=== PATIENT | female | born 1955 | race Caucasian/White ===

== ENCOUNTER 2023-03-07 10:45 | Emergency (ER) | payer MEDICARE, SELFPAY ==
[2023-03-07 10:52] VITALS: BP 133/65; PULSE 76; RESP 20; TEMP 36.9; O2SAT 96
--- NOTE | 2023-03-07 11:01 | ED.URI ---
HPI - URI/Sore Throat General Chief Complaint: Upper Respiratory Infection Stated Complaint: sore throat History of Present Illness HPI Narrative: pt is a 67 y/o female, presents to with 4 day hx of sore throat, sore tongue and gingival swelling/pain, onset of symptoms 2 days prior to completion of oral abx and oral steroids for bronchitis. She has continued to have pain to the tongue and throat since that time. She denies associated fevers, dysphagia or GERD symptoms. she has not attempted any modifying factors. She was concerned she may have strep, prompting her visit. Related Data Home Medications Medication Instructions Recorded Confirmed chlorthalidone 25 mg tablet mg 03/07/23 famotidine 20 mg tablet mg 03/07/23 Allergies Allergy/AdvReac Type Severity Reaction Status Date / Time Penicillins Allergy Hives Verified 03/07/23 10:53 Review of Systems Review of Systems: no fevers ENT: Comments: refer to HPI Exam Narrative: Pleasant, conversant, speech is clear Const: General: healthy appearing Nutritional Appearance: well nourished Orientation/consciousness: patient oriented x3 Limitations: no limitations HENMT: Head: normal to inspection Ears: external ears normal and TM's normal bilaterally Face/Nose/Sinus: Normal external nose present and Normal nares present Face and sinus: normal facial exam Mouth: Yes Abnormal oral and palatal mucosa present erythematous and other (pt has white patchy eruptions over the posterior tongue. Buccal mucosa, gingiva and pharyngeal mucosa is erythematous) Other: no trismus uvula midline Tonsils do not appear grossly swollen, no exudate noted Eyes: Conjunctivae: conjunctivae normal Pupils: Equal, round and reactive pupils present EOM: EOMs intact bilaterally Direct Ophthalmoscopy: no photophobia Neck: Neck: normal visual inspection, no lymphadenopathy and no meningeal signs Resp: Effort & Inspection: normal respiratory effort Auscultation: clear to auscultation bilaterally Cardio: Rate: regular rate Rhythm: regular rhythm GI: GI Palp: Yes Soft to palpation and Yes Tenderness to palpation present (GI) Auscultation: normal bowel sounds Back/Spine/Pelvis: Back: no CVA tenderness Skin: General skin exam: normal color Neuro: General: patient oriented x3, moves all extremities, no meningeal signs and no focal motor deficits Cranial nerves: Yes Nystagmus not present Speech: normal speech Gait exam (Neuro): Normal gait present Extrem: General: normal to inspection Course Course Emergency Course: pts exam is consistent with thrush. She is advised of plan to treat with oral nystatin, PCP FU if symptoms are not improving in 3 days. Pt is agreeable with plan. Level of Care: Express Care Visit ([id number]) Vital Signs Vital signs: Vital Signs Temperature 36.9 C 03/07/23 10:52 Pulse Rate 76 03/07/23 10:52 Respiratory Rate 20 03/07/23 10:52 Blood Pressure 133/65 03/07/23 10:52 Pulse Oximetry 96 03/07/23 10:52 Oxygen Delivery Room Air 03/07/23 10:52 Temperature 36.9 C 03/07/23 10:52 Pulse Rate 76 03/07/23 10:52 Respiratory Rate 20 03/07/23 10:52 Blood Pressure 133/65 03/07/23 10:52 Pulse Oximetry 96 03/07/23 10:52 Oxygen Delivery Room Air 03/07/23 10:52 MDM - URI/Sore Throat MDM Narrative Medical decision making narrative: nystatin swish and swallow, PCP FU Differential Diagnosis Differential diagnosis: Likely pharyngitis and other (oral deisi) Discharge Plan Discharge Clinical Impression: Deisi infection, oral Patient Disposition: Home, Self-Care Condition: Stable Instructions: Antibiotic Form, Oral Candidiasis (ED) Prescriptions: New nystatin 100,000 unit/mL suspension 5 ml PO QID 14 Days Qty: 280 0RF Rx Instructions: swish and swallow No Action chlorthalidone 25 mg tablet famotidine 20 mg tablet Follow-up/Referrals: Ishan
== END 2023-03-07 11:19 | disposition home or self-care (01) ==
PROVIDERS: Emergency Provider Nurse Practitioner Family; PCP Internal Medicine
DX: B37.0 Candidal stomatitis (principal)
CPT/HCPCS: 99213; G0463

== ENCOUNTER 2025-07-21 08:35 | Emergency (ER) | payer MEDICARE, SELFPAY ==
[2025-07-21 08:48] VITALS: BP 167/87; PULSE 71; RESP 16; TEMP 36.8; O2SAT 100
--- OUTSIDE RECORDS SUMMARY | 2025-07-21 08:50 | XMS_ITS | Encounter Summary ---
Author Organization [facility] Address [address] [place] [address] Phone Care Team Providers Care Health Evaluator Name Role Phone Roman Olmstead MD Primary Care Provider [phone] Colt Avery PAC Unavailable [phone] Riki Castillo MD Unavailable Reason for Visit * Reason Comments Medication Refill Encounter Details Date Type Department Care Team (Late st Contact Info) Description 10/03/2021 Refill [facility] [address] [place] [address] Roman Olmstead MD #[address] [address] Medication Refill Social History Tobacco Use Types Packs/Day Years Used Date Smoking Tobacco: Every Day Cigarettes 1 48 Smokeless Tobacco: Never Alcohol Use Standard Drinks/Week Comments Yes 2 (1 standard drink = 0.6 oz pur e alcohol) social drinker PHQ-2 Answer Date Recorded Total Score - Questions 1-9 0 03/17 Comments No Sex and Gender Information Value Date Recorded Sex Assigned at Female 04/29/2023 2:40 PM CDT Legal Sex Female 8:52 PM CDT Gender Identity Female 04/29/2023 2:40 PM CDT Sexual Orientation Not on file documented as of this encounter Plan of Treatment Upcoming Encounters Date Type Department Care Team (Late st Contact Info) Description 07/22/2025 1:00 PM GENERATION MANAGER Lab [facility] PHYSICIAN [facility] LAB #[address] [address] [facility] [place] Lab/Ancillary 07/29/2025 1:00 PM GENERATION MANAGER Office Visit [facility] [place] [address] [place] [address] Roman Olmstead MD #[address] [address] 08/19/2025 1:00 PM GENERATION MANAGER [facility] [address] [place] [address] Riki Castillo MD #[address] [address] 08/19/2025 1:00 PM GENERATION MANAGER - 08/19/2025 1:30 PM GENERATION MANAGER [facility] [address] [place] [address] Riki Castillo MD #[address] [address] COLONOSCOPY Scheduled Procedures Name Priority Associated Diagnoses Date/Ti me COLONOSCOPY HISTORY OF ADENOMATOUS POLYP OF COLON 08/19/2025 1:00 PM GENERATION MANAGER documented as of this encounter Visit Diagnoses Diagnosis Essential hypertension with goal blood pressure less than 130/85 documented in this encounter Additional Health Concerns Assessment Noted Time PHQ-9 Depression Total Score: 0 04/05/20 20 10:21 AM CDT documented as of this encounter Care Teams Health Evaluator Relationship Specialty Start Date End Date Roman Olmstead MD #[address] [address] PCP - General Family Medicine 09/05/15 Colt Avery PAC #2 [facility] [address] [place] [address] Physician Heel Sander Physician Heel Sander 05/20/24 Riki Castillo MD #2 [facility] [address] [place] [address] Consulting Physician Colon and Rectal Surgery 06/17/25 documented as of this encounter
--- OUTSIDE RECORDS SUMMARY | 2025-07-21 08:50 | XMS_ITS | Encounter Summary ---
Author Organization [facility] Address [address] [place] [address] Phone Care Team Providers Care Director Of Accounts Receivable Name Role Phone Roman Olmstead MD Primary Care Provider [phone] Colt Avery PAC Unavailable [phone] Riki Castillo MD Unavailable Reason for Visit * Reason Comments Medication Refill Encounter Details Date Type Department Care Team (Late st Contact Info) Description 11/18/2022 Refill [facility] [place] #[address] [place] [address] Pamela Phoenix, NOVELTY PRINTING MACHINE OPERATOR, WEB PRESS OPERATOR ASSISTANT #[address] [address] Medication Refill Social History Tobacco Use Types Packs/Day Years Used Date Smoking Tobacco: Every Day Cigarettes 1 48 Smokeless Tobacco: Never Alcohol Use Standard Drinks/Week Comments Yes 2 (1 standard drink = 0.6 oz pur e alcohol) social drinker PHQ-2 Answer Date Recorded Total Score - Questions 1-9 0 05/0 01/2022 Comments No Sex and Gender Information Value Date Recorded Sex Assigned at Female 04/29/2023 2:40 PM CDT Legal Sex Female 8:52 PM CDT Gender Identity Female 04/29/2023 2:40 PM CDT Sexual Orientation Not on file documented as of this encounter Plan of Treatment Upcoming Encounters Date Type Department Care Team (Late st Contact Info) Description 07/22/2025 1:00 PM GERICARE AIDE Lab [facility] #[address] [address] Lab [place] Lab/Ancillary 07/29/2025 1:00 PM GERICARE AIDE Office Visit [facility] [place] #[address] [place] [address] Roman Olmstead MD #[address] [address] 08/19/2025 1:00 PM GERICARE AIDE [facility] [address] [place] [address] Riki Castillo MD #[address] [address] 08/19/2025 1:00 PM GERICARE AIDE - 08/19/2025 1:30 PM GERICARE AIDE [facility] [address] [place] [address] Riki Castillo MD #[address] [address] COLONOSCOPY Scheduled Procedures Name Priority Associated Diagnoses Date/Ti me COLONOSCOPY HISTORY OF ADENOMATOUS POLYP OF COLON 08/19/2025 1:00 PM GERICARE AIDE documented as of this encounter Visit Diagnoses Not on filedocumented in this encounter Additional Health Concerns Assessment Noted Time PHQ-9 Depression Total Score: 0 04/05/20 20 10:21 AM CDT documented as of this encounter Care Teams Director Of Accounts Receivable Relationship Specialty Start Date End Date Roman Olmstead MD #[address] [address] PCP - General Family Medicine 09/05/15 Colt Avery, PAC #[address] [facility] [address] [place] [address] Physician Senior Technical Architect Physician Senior Technical Architect 05/20/24 Riki Castillo MD #[address] [facility] [address] [place] [address] Consulting Physician Colon and Rectal Surgery 06/17/25 documented as of this encounter
--- OUTSIDE RECORDS SUMMARY | 2025-07-21 08:51 | XMS_ITS | Clinical Summary ---
Author Organization [facility] Address [address] [facility] [address] [place] [address] Phone Care Team Providers Care Stator Connector Name Role Phone Roman Olmstead MD Primary Care Provider [phone] [facility] Unavailable [phone] Riki Castillo MD Unavailable Allergies Active Allergy Reactions Criticality Noted Date Comments Penicillin G Hives High 08/20/2019 Penicillins Hives High 04/24/2016 Medications CRANBERRY PO Take 4,200 mg by mouth. Active Multiple Vitamins-Mineral s (CENTRUM SILVER PO) Take by mouth. Acti ve melatonin 3 MG Tablet Take 10 mg by mouth nightly. Active famotidine (PEPCID) 20 MG Tablet Take 1 Tablet by mouth 2 times daily. 180 Tablet 1 5 Active Additional Information Patient not taking.Reported on 06/17/2025 chlorthalidone (HYGROTON) 25 MG Tablet Take 1 Tablet by mouth daily. 90 Tablet 3 5 Active NAPROXEN PO Take by mouth nightly. Active omeprazole (PriLOSEC) 20 MG CAPSULE DELAYED RELEASEIndicatio ns:Dysphagia, unspecified type Take 1 Capsule by mouth daily. Take 30 minutes prior to the largest meal of the day. 90 Capsule 1 5 Active Active Problems Problem Noted Date Diagnosed Date Pure hypercholesterolemia 07/31/2022 Gastroesophageal reflux disease without esophagi tis 04/24/2016 Hypertension, essential 04/24/2016 Goiter, euthyroid 04/24/2016 Encounters Date Type Department Care Team Description 06/17/2025 2:00 PM CDT Office Visit [facility] Surgery - [place] [address] [phone] Roman Olmstead MD Kumar, Raman, MD History of adenomatous polyp of colon (Primary Dx) Discharge Disposition: Discharged to home or Selfcare 06/15/2025 Results Follow-Up [facility] [place] [address]2 [place] [phone] Oesneha, Lou N, RN RESOURCE NURSE, STRATEGIC ACCOUNT DIRECTOR POCT UA AUTOMATED W/O MICRO, VAGINITIS SCREEN, MOLECULAR 06/14/2025 2:15 PM CDT Office Visit [facility] [place] [address] [place] [phone] Vj, Lou N, RN RESOURCE NURSE, STRATEGIC ACCOUNT DIRECTOR Pain (Primary Dx); Urine frequency; Urgency incontinence; Right flank pain Discharge Disposition: Discharged to home or Selfcare 06/14/2025 Travel 06/14/2025 Telephone [facility] [address] [place] [phone] Roman Olmstead MD Advice Only 06/03/2025 Telephone [facility] General Surgery - [place] [address] [phone] Riki Castillo MD 05/20/2025 [facility] [place] [facility] [place] [phone] Roman Olmstead MD 05/20/2025 [facility]phone [facility] [place] [address] [place] [phone] Kalli Rocha APRN, STRATEGIC ACCOUNT DIRECTOR Need Order 05/10/2025 Results Follow-Up [facility] [place] [address]2 [place] [phone] Javier Crabtree APRN, DARLENE XR UPPER G.I. SERIES W ESOPHAGUS 05/07/2025 8:55 AM CDT - 05/07/2025 11:59 PM CDT [facility] [address] [place] [address] Javier Crabtree APRN, DARLENE Discharge Disposition: Discharged to home or Selfcare 05/07/2025 8:54 AM CDT [facility] [address] [place] [address] Javier Crabtree APRN, Steff Myrick MS [facility] Discharge Disposition: Discharged to home or Selfcare 05/07/2025 Plan of Care Documentation [facility] Diagnostic Radiology [address] [place] [address] 05/07/2025 Travel 05/03/2025 [facility] [address] [place] [address] Kalli Rocha APRN, DARLENE 04/30/2025 Telephone [facility] [address] [place] [address] Roman Olmstead MD 04/20/2025 3:39 PM CDT - 04/20/2025 11:59 PM CDT [facility] [address] [place] [address] Roman Olmstead MD Discharge Disposition: Discharged to home or Selfcare 04/20/2025 2:30 PM CDT [facility] [address] [place] [address] Javier Crabtree APRN, DARLENE Dysphagia, unspecified type (Primary Dx) Discharge Disposition: Discharged to home or Selfcare 04/20/2025 Travel from Last 3 Months Immunizations Immunization Administration Dates Next Due Influenza Vaccine, Quadrivalent, PF 07/31/2022,1 09/19/2020 Influenza, Quadrivalent, Adjuvanted 07/30/2023 Influenza, Trivalent, Adjuvanted, PF 07/30/2024 PUR TDAP 7+ YRS IM 04/24/2016 Pneumococcal conjugate PCV20 , polysaccharide [id number] conjugate, adjuvant, PF 01/29/2023 TDAP Vaccine 04/24/2016 Family History Medical History Relation Name Comments Cancer Brother 1 Herminio Lung Cancer Brother 1 Herminio No Known Problems Brother 2 Mason No Known Problems Daughter 1 No Known Problems Daughter 2 Diabetes Father ugene Heart Attack Maternal Grandfather Hypertension Maternal Grandmother Diabetes Mother minda Hypertension Mother minda Osteoarthritis Mother minda Thyroid Disease Mother minda addisons Mother minda Stroke Paternal Grandfather Hypertension Paternal Grandmother No Known Problems Sister 1 Mirna No Known Problems Sister 2 Agueda No Known Problems Son Relation Name Status Comments Brother 1 Herminio Alive Currently on ho spice Brother 2 Mason Alive Daughter 1 Alive Daughter 2 Alive Father ugene Progressive sup ranuclear palsy Maternal Grandfather Maternal Grandmother ruth s disease Mother minda addisons diease Paternal Grandfather Paternal Grandmother Sister 1 Mirna Alive Sister 2 Agueda Alive Son Alive Social History Tobacco Use Types Packs/Day Years Used Date Smoking Tobacco: Every Day Cigarettes 1 53.8 Started: 1970 Smokeless Tobacco: Never Tobacco Cessation:Ready to Q uit: Not Asked; Counseling Given: Not Answered Alcohol Use Standard Drinks/Week Comments Yes 2 (1 standard drink = 0.6 oz pur e alcohol) social drinker Overall Financial Resource Strain ([facility]) Answe r Date Recorded How hard is it for you to pa y for the very basics like food, housing, medical care, and heating? Not hard at all 01/28/2024 PHQ-2 Answer Date Recorded Total Score - Questions 1-9 0 01/14 Exercise Vital Sign Answer Date Recorde d On average, how many days pe r week do you engage in moderate to strenuous exercise (like a brisk walk)? 3 days 01/28/2024 On average, how many minutes do you engage in exercise at this level? 120 min 01/28/2024 Education Answer Date Recorded What is the highest level of school you have completed or the highest degree you have received? Bachelor's degree (e.g., BA, AB, BS) 01/29/2023 Sexually Active Control Partners Comments Not Currently Male Comments No Sex and Gender Information Value Date Recorded Sex Assigned at Female 04/29/2023 2:40 PM CDT Legal Sex Female 8:52 PM CDT Gender Identity Female 04/29/2023 2:40 PM CDT Sexual Orientation Not on file Last Filed Vital Signs Vital Sign Reading Time Taken Comments Blood Pressure 114/58 06/17/2025 1:56 PM CDT Pulse 86 06/17/2025 1:56 PM CDT Temperature 36.4 C (97.6 F) 06/14/2025 2:18 PM CDT Respiratory Rate 16 06/14/2025 2:18 PM CDT Oxygen Saturation 96% 06/17/2025 1:56 PM CDT Inhaled Oxygen Concentration - - Weight 61.2 kg (135 lb) 06/17/2025 1:56 PM CDT Height 152.4 cm (5') 06/17/2025 1:56 PM CDT Body Mass Index 26.37 06/17/2025 1:56 PM CDT Plan of Treatment Upcoming Encounters Date Type Department Care Team (Late st Contact Info) Description 07/22/2025 1:00 PM AUTOMATIC MOLD SANDER Lab [facility] #[address] [phone] [facility] Lab/Ancillary 07/29/2025 1:00 PM AUTOMATIC MOLD SANDER [facility] [place] [address]2 [place] [address] Roman Olmstead MD #[address] [address] 08/19/2025 1:00 PM AUTOMATIC MOLD SANDER Hospital [facility] Lab Periop [address] [place] [address] Riki Castillo MD #[address] [address] 08/19/2025 1:00 PM AUTOMATIC MOLD SANDER - 08/19/2025 1:30 PM AUTOMATIC MOLD SANDER Surgery [facility] Gi Lab Periop [address] [place] [address] Riki Castillo MD [address] [address] COLONOSCOPY Scheduled Procedures Name Priority Associated Diagnoses Date/Ti me COLONOSCOPY HISTORY OF ADENOMATOUS POLYP OF COLON 08/19/2025 1:00 PM AUTOMATIC MOLD SANDER Health Maintenance Due Date Last Done Comments Hepatitis C Virus (HCV) Screening 1955 Cologuard 2001 Immunochemical Fecal Occult Blood 2001 Zoster Immunization (1 of 2) 2006 Medicare Initial AWV [id number] 04/16/2022 DEXA Bone Density 01/31/2024 01/30/2022 Influenza Immunization (#1) 05/17/202507/17, 07/30/2023, 07/31/2022, Additional history exists SARS-COV-2 Immunization ( season) 2025 01/23/2021 Mammogram 03/11/2026 03/11/2025, 01/14, 03/18/2019, Additional history exists Lung Cancer Screening 04/20/2026 04/20/2025 , 04/29/2023, 02/27/2022 Td Immunization Every 10 Years (Adults With 1 Tdap) 04/24/2026 04/24/2016, 04/24/2016 Colonoscopy 08/20/2029 08/20/2019, 08/20/2019 Colorectal Cancer Screening 08/20/2029 Respiratory Syncytial Virus (RSV) Immunization (Adult) (1 - 1-dose 75+ series) 2031 DTaP/Tdap/Td Immunization Discontinued 04/24/2016, 05/2016 Pneumococcal Immunization (50+ years) Completed 01/29/2023 Pneumococcal Immunization Combined Discontinued 01/29/2023 Hepatitis B Immunization Aged Out No longer eligible based on patient's age to complete this topic Human Papillomavirus (HPV) Immunization Aged Out No longer eligible based on patient's age to complete this topic Meningococcal Immunization (ACWY) Aged Out No longer eligible based on patient's age to complete this topic Rotavirus Immunization Aged Out No lo nger eligible based on patient's age to complete this topic Procedures Procedure Name Priority Date/Time Associated Diagnosis Comments VAGINITIS SCREEN, MOLECULAR Routine 06/14/2025 2:43 PM CDT Pain POCT UA AUTOMATED W/O MICRO Routine 06/14/2025 2:20 PM CDT Pain XR UPPER G.I. SERIES W ESOPHAGUS Less Than 1 week 05/07/2025 9:54 AM CDT Dysphagia, unspecified type XR SWALLOWING FUNCTION STUDY WITH VIDEO/CINE Routine 05/07/2025 9:50 AM CDT Dysphagia, unspecified type CT CHEST SCREENING WO Routine 04/20/2025 3:48 PM CDT Personal history of nicotine dependence AMI SCREENING BILATERAL DIGITAL W CAD W ARGENIS Routine 03/11/2025 2:01 PM CDT Encounter for screening mammogram for breast cancer AMI BONE DENSITOMETRY AXIAL SKELETON Routine 01/30/2022 2:38 PM CDT Menopause HM COLONOSCOPY Routine 08/20/2019 from Last 3 Months or Most Recently Relevant to Health Maintenance Results * VAGINITIS SCREEN, MOLECULAR (06/14/2025 2:43 PM CDT) TRICHOMONAS NOT DETECTED NOT DETECTED 06/15/2025 12:37 AM CDT [facility] NOT DETECTED NOT DETECTED 06/15/2025 12:37 AM CDT [facility] DEISI NOT DETECTED NOT DETECTED 06/15/2025 12:37 AM CDT [facility] Comment: Deisi group Not detected with the following possible Deisi species: Deisi albicans and/or Deisi tropicalis and/or Deisi parapsilosis and/or Deisi dubliniensis DEISI GLABRATA NOT DETECTED NOT DETECTED 06/15/2025 12:37 AM CDT [facility] DEISI KRUSEI NOT DETECTED NOT DETECTED 06/15/2025 12:37 AM CDT [facility] Other VAGINAL STRUCTURE / Unknown Non-Phlebotomy Collection / Unknown 06/14/2025 2:43 PM CDT 06/14/2025 2:43 PM CDT December N Vj PERRY CNP MICROBIOLOGY - GENERAL OR DERABLES Final Result [facility] [address] [place] [address], * (ABNORMAL) POCT UA AUTOMATED W/O MICRO (06/14/2025 2:20 PM CDT) POC UA SPECIFIC GRAVITY 1.005 URINE PH 7.0 5.0 - 9.0 POC URINE LEUKOCYTES Negative Negative Lorenza/uL POC URINE NITRITE Negative Negative POC URINE PROTEIN Negative Negative mg/dL POC URINE GLUCOSE Norm Negative, Norm mg/dL POC URINE KETONE Negative Negative mg/dL POC URINE UROBILINOGEN Norm Norm, 0.2 E.U./dL (mg/dL), 1 E.U./dL (mg/dL) POC URINE BILIRUBIN Negative Negative mg/dL POC URINE BLOOD INSTRUMENT 50 Checo/uL(A) Negative Checo/uL POC URINE COLOR Light Yellow POC URINE CLARITY Clear Urine 06/14/2025 2:20 PM CDT December N Vj PERRY CNP POINT OF CARE TESTING (KRISHNA PEREZ) Final Result * XR UPPER G.I. SERIES W ESOPHAGUS (05/07/2025 9:54 AM CDT) Anatomical Region Laterality Modality GI, Abdomen N/A Digital Radiogra phy 05/07/2025 1:03 PM CDT Impressions 05/07/2025 1:06 PM CDT IMPRESSION: Normal upper GI series. Narrative 05/07/2025 1:06 PM CDT EXAM DESCRIPTION: XR UPPER G.I. SERIES W ESOPHAGUS REASON FOR STUDY: pt c/o difficulty swallowing. GERD x 2 mo, omeprizole x 2 weeks COMPARISON: None RADIATION DOSE: Dose: N/A TECHNIQUE: Patient ingested thin and thick consistencies of barium contrast. FINDINGS: 12.5 mm Barium Tablet: No significant delay in passage. ESOPHAGEAL MOTILITY: Normal peristalsis. No evidence of achalasia or esophageal spasm. ESOPHAGEAL MUCOSA: Normal mucosa ulceration. No evidence of stricture. No diverticulum. GASTRO-ESOPHAGEAL JUNCTION: No significant hiatal hernia or evidence of reflux. STOMACH: Normal without masses or ulcerations. GASTRIC OUTLET: No delay in emptying. DUODENUM AND PROXIMAL JEJUNUM: Normal peristalsis. No strictures or filling defects. No evidence of malrotation. THIS IS AN ELECTRONICALLY VERIFIED FINAL REPORT 05/07/2025 1:03 PM - Electronically signed by Schuyler Eugene M.D. KR: SYED Report ID: [id number] Reading Location: [place] [address] Procedure Note Schuyler Eugene MD - 05/07/2025 EXAM DESCRIPTION: XR UPPER G.I. SERIES W ESOPHAGUS REASON FOR STUDY: pt c/o difficulty swallowing. GERD x 2 mo, omeprizole x 2 weeks COMPARISON: None RADIATION DOSE: Dose: N/A TECHNIQUE: Patient ingested thin and thick consistencies of barium contrast. FINDINGS: 12.5 mm Barium Tablet: No significant delay in passage. ESOPHAGEAL MOTILITY: Normal peristalsis. No evidence of achalasia or esophageal spasm. ESOPHAGEAL MUCOSA: Normal mucosa ulceration. No evidence of stricture. No diverticulum. GASTRO-ESOPHAGEAL JUNCTION: No significant hiatal hernia or evidence of reflux. STOMACH: Normal without masses or ulcerations. GASTRIC OUTLET: No delay in emptying. DUODENUM AND PROXIMAL JEJUNUM: Normal peristalsis. No strictures or filling defects. No evidence of malrotation. THIS IS AN ELECTRONICALLY VERIFIED FINAL REPORT 05/07/2025 1:03 PM - Electronically signed by Schuyler Eugene M.D. KR: SYED Report ID: [id number] Reading Location: [id number] IMPRESSION: Normal upper GI series. Javier Crabtree APRN, DARLENE IMG FLUOROSCOPY ORDERABLES Final Result * XR SWALLOWING FUNCTION STUDY WITH VIDEO/CINE (05/07/2025 9:50 AM CDT) Anatomical Region Laterality Modality GI, Abdomen N/A Digital Radiogra phy 05/07/2025 1:01 PM CDT Impressions 05/07/2025 1:03 PM CDT IMPRESSION: No evidence of penetration or aspiration. Please correlate with Speech Pathology report. Narrative 05/07/2025 1:03 PM CDT EXAM DESCRIPTION: XR SWALLOWING FUNCTION STUDY WITH VIDEO/CINE REASON FOR STUDY: pt c/o difficulty swallowing. GERD x 2 mo, omeprizole x 2 weeks RADIATION DOSE: Dose: N/A TECHNIQUE: Fluoroscopic assistance provided to Speech Pathology Department who performed the exam. The patient was brought into the fluoro room and placed upright on a modified barium swallow chair. The patient was then given multiple consistencies mixed with barium to swallow under live fluoroscopic video guidance. COMPARISON: None FINDINGS: No evidence of penetration or aspiration. THIS IS AN ELECTRONICALLY VERIFIED FINAL REPORT 05/07/2025 1:01 PM - Electronically signed by Schuyler Eugene M.D. KR: SYED Report ID: [id number] Reading Location: [id number] Procedure Note Schuyler Eugene MD - 05/07/2025 EXAM DESCRIPTION: XR SWALLOWING FUNCTION STUDY WITH VIDEO/CINE REASON FOR STUDY: pt c/o difficulty swallowing. GERD x 2 mo, omeprizole x 2 weeks RADIATION DOSE: Dose: N/A TECHNIQUE: Fluoroscopic assistance provided to Speech Pathology Department who performed the exam. The patient was brought into the fluoro room and placed upright on a modified barium swallow chair. The patient was then given multiple consistencies mixed with barium to swallow under live fluoroscopic video guidance. COMPARISON: None FINDINGS: No evidence of penetration or aspiration. THIS IS AN ELECTRONICALLY VERIFIED FINAL REPORT 05/07/2025 1:01 PM - Electronically signed by Schuyler Eugene M.D. KR: SYED Report ID: [id number] Reading Location: [id number] IMPRESSION: No evidence of penetration or aspiration. Please correlate with Speech Pathology report. us Javier Crabtree APRN, STRATEGIC ACCOUNT DIRECTOR IMG FLUOROSCOPY ORDERABLES Final Result * CT CHEST SCREENING WO (04/20/2025 3:48 PM CDT) Anatomical Region Laterality Modality Chest N/A Computed Tomogra phy 04/30/2025 9:31 AM CDT Addenda Addendum by Marcelo Cruz MD on 04/30/2025 12:55 PM CDT ADDENDUM REPORT: ADDENDUM: This addendum report supersedes the original report dated 04/30/2025. Asymmetrically enlarged right thyroid lobe with likely underlying thyroid nodule. Recommend thyroid ultrasound if not previously performed. END OF ADDENDUM REPORT EXAM DESCRIPTION: CT CHEST SCREENING WO REASON FOR STUDY: Screening CT of the chest in a current smoker with a 51 pack year smoking history. Additional history: None. TECHNIQUE: Low dose CT scan of the chest was performed without intravenous contrast using helical scanning technique. The exam extends from the lung apices through the lung bases. Automatic exposure control was used as a dose optimization technique. NOTE: This study was performed for the specific purposes of lung cancer screening and is not an alternative to diagnostic chest CT. RADIATION DOSE: CT dose index volume (CTDIvol) = 2.91 mGy COMPARISON: 04/29/2023 FINDINGS: SMOKING RELATED LUNG DISEASE: Mild emphysematous changes. Mild bronchial wall thickening with mucous plugging noted in the subsegmental left lower lobe which can be seen with chronic bronchitis. LUNG NODULES: Small pulmonary nodules including: Unchanged 2 mm right apical pulmonary nodule (3; 23). Unchanged linear 2 mm nodule in the lateral subpleural right lung apex (3; 31). No new suspicious pulmonary nodules. CORONARY ARTERY CALCIFICATION: Moderate. OTHER: No focal consolidation, pneumothorax, or pleural effusion. No thoracic aortic aneurysm. Heart size within normal limits. No pathologically enlarged lymphadenopathy. Enlarged right thyroid lobe similar to prior with likely underlying nodule. Circumferential wall thickening of the mid and lower esophagus. No definite acute abnormality within the visualized abdomen. No aggressive appearing osseous lesions. No acute osseous abnormality. IMPRESSION: 1. Unchanged small pulmonary nodules. No new suspicious pulmonary nodules. 2. Moderate coronary atherosclerotic calcifications. 3. Circumferential wall thickening of the mid and lower esophagus. Recommend correlation for symptoms of esophagitis and consider further evaluation with endoscopy as clinically appropriate. Lung-RADS category 2S: Benign appearance or behavior. Finding other than a pulmonary nodule which is potentially clinically significant. Recommendation: Low dose Screening CT of chest in 12 months. THIS IS AN ELECTRONICALLY VERIFIED FINAL REPORT 04/30/2025 9:31 AM - Electronically signed by Marcelo Cruz M.D. NS: NS Report ID: [id number] Reading Location: [id number] THIS IS AN ELECTRONICALLY VERIFIED FINAL REPORT 04/30/2025 12:53 PM Addendum Electronically signed by Marcelo Cruz M.D. NS: NS Report ID: [id number] Reading Location: [id number] Impressions 04/30/2025 9:33 AM CDT IMPRESSION: 1. Unchanged small pulmonary nodules. No new suspicious pulmonary nodules. 2. Moderate coronary atherosclerotic calcifications. 3. Circumferential wall thickening of the mid and lower esophagus. Recommend correlation for symptoms of esophagitis and consider further evaluation with endoscopy as clinically appropriate. Lung-RADS category 2S: Benign appearance or behavior. Finding other than a pulmonary nodule which is potentially clinically significant. Recommendation: Low dose Screening CT of chest in 12 months. Narrative 04/30/2025 9:33 AM CDT EXAM DESCRIPTION: CT CHEST SCREENING WO REASON FOR STUDY: Screening CT of the chest in a current smoker with a 51 pack year smoking history. Additional history: None. TECHNIQUE: Low dose CT scan of the chest was performed without intravenous contrast using helical scanning technique. The exam extends from the lung apices through the lung bases. Automatic exposure control was used as a dose optimization technique. NOTE: This study was performed for the specific purposes of lung cancer screening and is not an alternative to diagnostic chest CT. RADIATION DOSE: CT dose index volume (CTDIvol) = 2.91 mGy COMPARISON: 04/29/2023 FINDINGS: SMOKING RELATED LUNG DISEASE: Mild emphysematous changes. Mild bronchial wall thickening with mucous plugging noted in the subsegmental left lower lobe which can be seen with chronic bronchitis. LUNG NODULES: Small pulmonary nodules including: Unchanged 2 mm right apical pulmonary nodule (3; 23). Unchanged linear 2 mm nodule in the lateral subpleural right lung apex (3; 31). No new suspicious pulmonary nodules. CORONARY ARTERY CALCIFICATION: Moderate. OTHER: No focal consolidation, pneumothorax, or pleural effusion. No thoracic aortic aneurysm. Heart size within normal limits. No pathologically enlarged lymphadenopathy. Enlarged right thyroid lobe similar to prior with likely underlying nodule. Circumferential wall thickening of the mid and lower esophagus. No definite acute abnormality within the visualized abdomen. No aggressive appearing osseous lesions. No acute osseous abnormality. THIS IS AN ELECTRONICALLY VERIFIED FINAL REPORT 04/30/2025 9:31 AM - Electronically signed by Marcelo Cruz M.D. NS: NS Report ID: [id number] Reading Location: [place] [address] Procedure Note Marcelo Cruz MD - 04/30/2025 EXAM DESCRIPTION: CT CHEST SCREENING WO REASON FOR STUDY: Screening CT of the chest in a current smoker with a 51 pack year smoking history. Additional history: None. TECHNIQUE: Low dose CT scan of the chest was performed without intravenous contrast using helical scanning technique. The exam extends from the lung apices through the lung bases. Automatic exposure control was used as a dose optimization technique. NOTE: This study was performed for the specific purposes of lung cancer screening and is not an alternative to diagnostic chest CT. RADIATION DOSE: CT dose index volume (CTDIvol) = 2.91 mGy COMPARISON: 04/29/2023 FINDINGS: SMOKING RELATED LUNG DISEASE: Mild emphysematous changes. Mild bronchial wall thickening with mucous plugging noted in the subsegmental left lower lobe which can be seen with chronic bronchitis. LUNG NODULES: Small pulmonary nodules including: Unchanged 2 mm right apical pulmonary nodule (3; 23). Unchanged linear 2 mm nodule in the lateral subpleural right lung apex (3; 31). No new suspicious pulmonary nodules. CORONARY ARTERY CALCIFICATION: Moderate. OTHER: No focal consolidation, pneumothorax, or pleural effusion. No thoracic aortic aneurysm. Heart size within normal limits. No pathologically enlarged lymphadenopathy. Enlarged right thyroid lobe similar to prior with likely underlying nodule. Circumferential wall thickening of the mid and lower esophagus. No definite acute abnormality within the visualized abdomen. No aggressive appearing osseous lesions. No acute osseous abnormality. THIS IS AN ELECTRONICALLY VERIFIED FINAL REPORT 04/30/2025 9:31 AM - Electronically signed by Marcelo Cruz M.D. NS: NS Report ID: [id number] Reading Location: [id number] IMPRESSION: 1. Unchanged small pulmonary nodules. No new suspicious pulmonary nodules. 2. Moderate coronary atherosclerotic calcifications. 3. Circumferential wall thickening of the mid and lower esophagus. Recommend correlation for symptoms of esophagitis and consider further evaluation with endoscopy as clinically appropriate. Lung-RADS category 2S: Benign appearance or behavior. Finding other than a pulmonary nodule which is potentially clinically significant. Recommendation: Low dose Screening CT of chest in 12 months. us Roman Olmstead MD G CT ORDERABLES Edited Resu lt - Final * [facility] SCREENING BILATERAL DIGITAL W CAD W ARGENIS (03/11/2025 2:01 PM CDT) Anatomical Region Laterality Modality breast Bilateral Mammography 03/11/2025 1:54 PM CDT Narrative 03/12/2025 10:55 AM CDT - [facility] SCREENING BILATERAL DIGITAL W CAD W ARGENIS BILATERAL DIGITAL SCREENING MAMMOGRAM 3D/2D WITH CAD WITH MEDIOLATERAL OBLIQUE CRANIOCAUDAL: 03/11/2025 The study was acquired using digital technology and interpreted from soft copy. Current study was also evaluated with ICAD version 7.2. 2D digital mammographic views, as well as 3D digital tomosynthesis were performed in the CC and MLO projections. CLINICAL: Routine screening. Patient has no complaints. No personal history of cancer. Paternal great aunt had breast cancer. COMPARISONS: Comparison is made to exams dated: 02/01/2022 [facility], 03/18/2019, and 07/10/2011 [facility]. BREAST TISSUE:There are scattered areas of fibroglandular density. FINDINGS: No significant masses, calcifications, or other findings are seen in either breast. There has been no significant interval change. IMPRESSION: NEGATIVE There is no mammographic evidence of malignancy. A 1 year screening mammogram is recommended. A letter will be sent to the patient with these results. The patient will be entered into a reminder system with a target due date of 1 year for her next screening exam. Electronically signed by: Kym jaime/penrad:03/11/2025 20:00:32 Mica Washer Gluer(s): RT Alex(R)(M), [facility] letter sent: Normal Exam Reading location: [facility] Mammogram BI-RADS: Category 1: Negative Procedure Note Kym Brush MD - 03/12/2025 - [facility] SCREENING BILATERAL DIGITAL W CAD W ARGENIS BILATERAL DIGITAL SCREENING MAMMOGRAM 3D/2D WITH CAD WITH MEDIOLATERAL OBLIQUE CRANIOCAUDAL: 03/11/2025 The study was acquired using digital technology and interpreted from soft copy. Current study was also evaluated with ICAD version 7.2. 2D digital mammographic views, as well as 3D digital tomosynthesis were performed in the CC and MLO projections. CLINICAL: Routine screening. Patient has no complaints. No personal history of cancer. Paternal great aunt had breast cancer. COMPARISONS: Comparison is made to exams dated: 02/01/2022 [facility], 03/18/2019, and 07/10/2011 [facility]. BREAST TISSUE:There are scattered areas of fibroglandular density. FINDINGS: No significant masses, calcifications, or other findings are seen in either breast. There has been no significant interval change. IMPRESSION: NEGATIVE There is no mammographic evidence of malignancy. A 1 year screening mammogram is recommended. A letter will be sent to the patient with these results. The patient will be entered into a reminder system with a target due date of 1 year for her next screening exam. Electronically signed by: Kym jaime/penrad:03/11/2025 20:00:32 Mica Washer Gluer(s): RT Alex(R)(M), [facility] letter sent: Normal Exam Reading location: [facility] Mammogram BI-RADS: Category 1: Negative Roman Olmstead MD IMKezia MAMMO ORDERABLES Final Re sult * [facility] BONE DENSITOMETRY AXIAL SKELETON (01/30/2022 2:38 PM CDT) Anatomical Region Laterality Modality BODY N/A Other 02/07/2022 3:26 PM CDT Impressions 02/07/2022 3:28 PM CDT IMPRESSION: Low bone mass of the left femoral neck. Otherwise bone mineral density testing is within normal limits. REFERENCE: Bone mineral density: Normal (T-score above or = -1.0) Low bone mass (T-score between -1.0 and -2.5) replaces the previously used term osteopenia Osteoporosis (T-score = or below -2.5) Medical evaluation for secondary causes of low bone mineral density may be appropriate. FRAX is a World Health Organization validated fracture risk assessment tool that calculates a person's 10 year probability of a major osteoporosis related fracture and hip fracture. According to the National Osteoporosis Foundation guidelines, postmenopausal women and men age 50 or older with low bone mass and a 10 year probability of a major osteoporosis related fracture = or greater than 20% or a 10 year probability of a hip fracture = or greater than 3% should be considered for treatment. For further information, including treatment recommendations, please refer to the 2013 ISCD Official Positions (http://www.iscd.org) and the NOF's Clinician's Guide to Prevention and Treatment of Osteoporosis (http://www.nof.org/professionals/clinical-guidelines) Narrative 02/07/2022 3:28 PM CDT EXAM DESCRIPTION: [facility] BONE DENSITOMETRY AXIAL SKELETON REASON FOR STUDY: 66 year old female with given history of screening. Brazing Machine Setter/Model: Buzzoola (S/N [id number]) CLINICAL INFORMATION: Current height: 59 inches Weight: 143 pounds Risk factors: Tobacco user (current smoker) COMPARISON: None available. FINDINGS: AP LUMBAR SPINE L1-L4: Total BMD is 1.188 g/cm2 T-score is 0.0 LEFT HIP: Total BMD is 1.046 g/cm2 T-score is 0.3 Femoral neck BMD is 0.871 g/cm2 T-score is -1.2 Fracture risk assessment (FRAX): 10 year risk for a major osteoporotic fracture is 8.3 % 10 year risk for a hip fracture is 1.2 % The FRAX tool has not been validated in patients currently or previously treated with pharmacotherapy for osteoporosis. In such patients, clinical judgement must be exercised in interpreting FRAX scores as the fracture risk may be overestimated. THIS IS AN ELECTRONICALLY VERIFIED FINAL REPORT 02/07/2022 3:26 PM - Electronically signed by Demetrio Otto M.D. KALYAN: KALYAN Report ID: [id number] Reading Location: [id number] Procedure Note Demetrio Otto MD - 02/07/2022 EXAM DESCRIPTION: [facility] BONE DENSITOMETRY AXIAL SKELETON REASON FOR STUDY: 66 year old female with given history of screening. Brazing Machine Setter/Model: Buzzoola (S/N [id number]) CLINICAL INFORMATION: Current height: 59 inches Weight: 143 pounds Risk factors: Tobacco user (current smoker) COMPARISON: None available. FINDINGS: AP LUMBAR SPINE L1-L4: Total BMD is 1.188 g/cm2 T-score is 0.0 LEFT HIP: Total BMD is 1.046 g/cm2 T-score is 0.3 Femoral neck BMD is 0.871 g/cm2 T-score is -1.2 Fracture risk assessment (FRAX): 10 year risk for a major osteoporotic fracture is 8.3 % 10 year risk for a hip fracture is 1.2 % The FRAX tool has not been validated in patients currently or previously treated with pharmacotherapy for osteoporosis. In such patients, clinical judgement must be exercised in interpreting FRAX scores as the fracture risk may be overestimated. THIS IS AN ELECTRONICALLY VERIFIED FINAL REPORT 02/07/2022 3:26 PM - Electronically signed by Demetrio BIGGS: KALYAN Report ID: [id number] Reading Location: [id number] IMPRESSION: Low bone mass of the left femoral neck. Otherwise bone mineral density testing is within normal limits. REFERENCE: Bone mineral density: Normal (T-score above or = -1.0) Low bone mass (T-score between -1.0 and -2.5) replaces the previously used term osteopenia Osteoporosis (T-score = or below -2.5) Medical evaluation for secondary causes of low bone mineral density may be appropriate. FRAX is a World Health Organization validated fracture risk assessment tool that calculates a person's 10 year probability of a major osteoporosis related fracture and hip fracture. According to the National Osteoporosis Foundation guidelines, postmenopausal women and men age 50 or older with low bone mass and a 10 year probability of a major osteoporosis related fracture = or greater than 20% or a 10 year probability of a hip fracture = or greater than 3% should be considered for treatment. For further information, including treatment recommendations, please refer to the 2013 ISCD Official Positions (http://www.iscd.org) and the NOF's Clinician's Guide to Prevention and Treatment of Osteoporosis (http://www.nof.org/professionals/clinical-guidelines) Roman Olmstead MD IMG DEXA ORDERABLES Final Res ult * [facility] COLONOSCOPY (08/20/2019) Herminio Wall MD PROCEDURE/MINOR SURGICAL ORDER LEILANI Final Result from Last 3 Months or Most Recently Relevant to Health Maintenance Insurance MEDICARE C [facility] Care Teams Stator Connector Relationship Specialty Start Date End Date Roman Olmstead MD #2 [facility] [address] [place] [address] PCP - General Family Medicine 09/05/15 Colt Avery PAC #2 [facility] [address] [place] [address] Physician Heel Sewer Physician Heel Sewer 05/20/24 Riki Castillo MD #2 [facility] [address] [place] [address] Consulting Physician Colon and Rectal Surgery 06/17/25
--- OUTSIDE RECORDS SUMMARY | 2025-07-21 08:51 | XMS_ITS | Encounter Summary ---
Author Organization [facility] Address [address] [place] [address] Phone Care Team Providers Care Combined Rail Operator Name Role Phone Roman Olmstead MD Primary Care Provider [phone] Colt Avery PAC Unavailable [phone] Riki Castillo MD Unavailable Encounter Details Date Type Department Care Team (Late st Contact Info) Description 06/15/2025 Results Follow-Up [facility] - Family Medicine - [place] [address] [place] [id number] Lou Zabala N, FOUNDRY HAND, [employer] REGISTRAR 2 [facility] [place] [place] [address] POCT UA AUTOMATED W/O MICRO, VAGINITIS SCREEN, MOLECULAR Social History Tobacco Use Types Packs/Day Years Used Date Smoking Tobacco: Every Day Cigarettes 1 48 Smokeless Tobacco: Never Alcohol Use Standard Drinks/Week Comments Yes 2 (1 standard drink = 0.6 oz pur e alcohol) social drinker Overall Financial Resource Strain (CARDIA) Answe r Date Recorded How hard is [...] Sexually Active Control Partners Comments Not Currently Comments No Sex and Gender Information Value Date Recorded Sex Assigned at Female 04/29/2023 2:40 PM CDT Legal Sex Female 8:52 PM CDT Gender Identity Female 04/29/2023 2:40 PM CDT Sexual Orientation Not on file documented as of this encounter Progress Notes * Princess Loera MA - 06/15/2025 9:35 AM CDT Patient was contacted and given results * Lou Zabala APRN, CNP - 06/15/2025 7:40 AM CDT negative documented in this encounter Plan of Treatment Upcoming Encounters Date Type Department Care Team (Late st Contact Info) Description 07/22/2025 1:00 PM PERSONNEL ARBITRATOR Lab [facility] [address] [address] N[facility] Lab/Ancillary 07/29/2025 1:00 PM PERSONNEL ARBITRATOR Office Visit [facility] - [facility] - [place] [address] [facility] [place] [address] Roman Olmstead MD #[address] [address] 08/19/2025 1:00 PM PERSONNEL ARBITRATOR Hospital Encounter [facility] Periop [address] [place] [address] Riki Castillo MD #[address] [address] 08/19/2025 1:00 PM PERSONNEL ARBITRATOR - 08/19/2025 1:30 PM PERSONNEL ARBITRATOR [facility] Periop [address] [place] [address] Riki Castillo MD #[address] [address] COLONOSCOPY Scheduled Procedures Name Priority Associated Diagnoses Date/Ti me COLONOSCOPY HISTORY OF ADENOMATOUS POLYP OF COLON 08/19/2025 1:00 PM PERSONNEL ARBITRATOR documented as of this encounter Visit Diagnoses Not on filedocumented in this encounter Additional Health Concerns Assessment Noted Time PHQ-9 Depression Total Score: 0 01/29/20 2:07 PM CDT documented as of this encounter Care Teams Combined Rail Operator Relationship Specialty Start Date End Date Roman Olmstead MD #[address] [address] PCP - General Family Medicine 09/05/15 Colt Avery PAC #[address] [address] Physician Dragline Operator Physician Dragline Operator 05/20/24 Riki Castillo MD #[address] [address] Consulting Physician Colon and Rectal Surgery 06/17/25 documented as of this encounter
[2025-07-21 08:57] LABS: EDUAAPPEAR Clear; EDUABILI Negative (Negative); EDUABLOOD 1+ (Negative); EDUACOLOR1 Yellow; EDUAGLUCOSE Negative (Negative); EDUAKETONE Negative (Negative); EDUALEUKO Trace (Negative); EDUANITRATE Negative (Negative); EDUAPH 8.0; EDUAPROTEIN Negative (Negative); EDUASPGRAVITY 1.015; EDUAUROBILI 0.2
--- NOTE | 2025-07-21 08:59 | ED_ITS ---
HPI - Female Genitourinary General Chief complaint: Urogenital-Female Stated complaint: UTI Time Seen by Provider: 07/21/25 09:00 Source: patient and RN notes reviewed Mode of arrival: ambulatory Limitations: no limitations History of Present Illness HPI Narrative: 70-year-old female presents with concern for 3 day history of dysuria, frequency, urgency. She denies back pain, abdominal pain, nausea,. She denies fever, aches, chills, sweats. She reports history of UTI MD elicited complaint: UTI Related Data Home Medications ?Medication ?Instructions ?Recorded ?Confirmed ?Last Taken ?Type chlorthalidone 25 mg tablet mg 03/07/23 Unknown Histo ry omeprazole 20 mg capsule,delayed mg 07/21/25 Unknown History release Allergies Allergy/AdvReac Type Severity Reaction Status Date / Time Penicillins Allergy Hives Verified 07/21/25 08:47 Review of Systems Review of Systems: CONSTITUTIONAL: Denies malaise, chills, sweats, or fever. CARDIOVASCULAR: Denies chest pain, palpitations, or edema. RESPIRATORY: Denies cough or dyspnea. GASTROINTESTINAL: Denies abdominal pain, nausea, vomiting, diarrhea GENITOURINARY: Reports dysuria, frequency, urgency, suprapubic pressure. Denies flank pain or hematuria. SKIN: Denies rash or itching. MUSCULOSKELETAL: Denies back pain or myalgia. All systems reviewed & are unremarkable except as noted in HPI and below PMFSH Comments At time of signature, agree with nursing past medical, surgical, social and family history. There is no relevant family history pertinent to the presenting complaint Exam Narrative: GENERAL: Well-appearing, well-nourished, and in no acute distress. HEAD: Normocephalic. EYES: PERRLA, conjunctivae clear. NECK: Supple. No lymphadenopathy CHEST: Clear to auscultation. No respiratory distress. HEART: Regular rate and rhythm. ABDOMEN: Soft, nontender upon palpation, nondistended, no palpable or pulsatile masses, no guarding. No CVA tenderness SKIN: Warm, dry, no rash. NEURO: Alert and oriented x3. PSYCH: Normal mood and affect Course Course Emergency Course: Patient is aware of diagnosis, understands and agrees to treatment plan. Anticipatory guidance given. Patient agrees to follow-up as directed and is aware of reasons to seek care at the emergency department. Portions of this record may have been created with voice recognition software Level of Care: Express Care Visit Vital Signs Vital signs: Vital Signs Temperature 98.2 F 07/21/25 08:48 Pulse Rate 71 07/21/25 08:48 Respiratory Rate 16 07/21/25 08:48 Blood Pressure 167/87 H 07/21/25 08:48 Pulse Oximetry 100 07/21/25 08:48 Oxygen Delivery Room Air 07/21/25 08:48 Temperature 98.2 F 07/21/25 08:48 Pulse Rate 71 07/21/25 08:48 Respiratory Rate 16 07/21/25 08:48 Blood Pressure 167/87 H 07/21/25 08:48 Pulse Oximetry 100 07/21/25 08:48 Oxygen Delivery Room Air 07/21/25 08:48 Reviewed. MDM - Female Genitourinary MDM Narrative Medical decision making narrative: Exam findings and UA show no acute concerns or changes; patient is non-toxic appearing and is in no distress. Patient is appropriate for outpatient treatment and follow-up. Differential Diagnosis Differential diagnosis: Likely urinary tract infection and cystitis Lab Data Labs: Lab Results 07/21/25 Range/Units 08:55 POC Urine Color Yellow POC Urine Clarity Clear POC Urine pH 8.0 POC Ur Specif [place] 1.015 POC Urine Protein Negative (Negative) POC Ur Glucose (UA) Negative (Negative) POC Urine Ketones Negative (Negative) POC Urine Blood 1+ (Negative) POC Urine Nitrite Negative (Negative) POC Urine Bilirubin Negative (Negative) POC Urine Urobilinogen 0.2 POC U Leukocyte Esteras Trace (Negative) Critical Care Time Critical Care Time Critical Care Time: No Discharge Plan Discharge Clinical Impression: Urinary tract infection Patient Disposition: Home Condition: Stable Instructions: Antibiotic Form, Urinary Tract Infection in Women (ED) Additional Instructions: We will send a urine culture to the lab; if the culture identifies an organism that the prescribed antibiotic will not treat, you will receive a phone call from an urgent care staff member and an appropriate antibiotic will be prescribed. -Your symptoms should begin to improve within a day of starting antibiotics. But you should finish all the antibiotic pills you get. Otherwise your infection might come back. -Also recommend: increase water intake. Tylenol/ibuprofen as needed for pain or fever -Follow-up with your primary care provider for urine recheck or seek ER visit if condition worsens with high fever, nausea, vomiting and severe back pain. Patient Language: Uzbek Prescriptions: New sulfamethoxazole-trimethoprim 800-160 mg tablet 1 tablet PO Q12H 7 Days Qty: 14 0RF No Action omeprazole 20 mg capsule,delayed release(DR/EC) chlorthalidone 25 mg tablet Follow-up/Referrals: Ishan,Roman Louise MD [Primary Care Provider] Time of Disposition: 09:04
== END 2025-07-21 09:16 | disposition home or self-care (01) ==
PROVIDERS: Emergency Provider Nurse Practitioner; PCP Internal Medicine
DX: N39.0 Urinary tract infection, site not specified (principal); I10 Essential (primary) hypertension; K21.9 Gastro-esophageal reflux disease without esophagitis
CPT/HCPCS: 81003; 87086; 99213; G0463